=== PATIENT | female | born 1990 | race Two or more races ===

== ENCOUNTER → 2016-08-03 | Outpatient (CLI) | payer OTHER ==
[~2016-08-03] MED LIST: ABILIFY2 MG PO; ADVIL200 MG PO; DESYREL100 MG PO; EFFEXOR XR150 MG PO; EFFEXOR XR75 MG PO; LEVOTHROID (S200 MCG PO; ONDANSETRON ODT4 MG PO; THERAGRAN-M1 TAB PO; TOPIRAMATE100 MG PO; VENLAFAXINE H37.5 M1 PO; VISINE15 ML OPHTH; VISTARIL50 MG PO; WELLBUTRIN XL150 M1 PO
== END | disposition disaster alternative care site (69) ==
LOC: GCAR 08-02 10:00
DX: R55 Syncope and collapse (principal)

== ENCOUNTER 2016-10-02 20:54 | Emergency (ER) | payer OTHER ==
--- NOTE | ~2016-10-02 | ER ---
PATIENT'S NAME: RAYMOND [facility] AGE: 26 Y [address] ROOM: [place] [id number] LOCATION: [facility] ADMIT DATE: 10/02/2016 ER/Outpatient Report DISCHARGE DATE: 10/02/2016 FAMILY PHYSICIAN: Iris Zamudio MD ATTENDING PHYSICIAN: Maribel Thornton HISTORY OF PRESENT ILLNESS: This is a 26-year-old female, who is currently 25 weeks who presents today with shortness of breath. It is actually with deep inspiration. She denies chest pain. She also says that she feels faint and has passed out 4 to 5 times over the past 2 weeks, but this is an ongoing problem for her. Over the weekend, she had multiple episodes of nausea and vomiting, although she feels well now. She denies any nausea. She reports that about an hour ago, she got really anxious and hot and then developed this chest discomfort, generalized weakness and shortness of breath, but all of these symptoms had completely resolved by the time she got to the ER. She just reports feeling a mild chest discomfort, but says she does not really have any chest pain. She rates her pain as 0/10. When asked if she was anxious, she says yeah, but she does not take anything for it because she is now. PAST MEDICAL HISTORY: Includes migraines, anxiety, hypothyroidism. HISTORY: She is at 25 weeks. She is G2, P1-0-0-1. LMP was May 2016. Follows up with Dr. Berumen, who is her [employer]. SOCIAL HISTORY: She does not smoke, drink or use any drugs. MEDICATIONS: Please see med list. ALLERGIES: NONE. REVIEW OF SYSTEMS: Reviewed by me and negative with the exception of those discussed in HPI. PHYSICAL EXAMINATION: VITAL SIGNS: She is 5 feet 3 inches. She weighs 55.6 kilos. Blood pressure 108/63, heart rate 104, respiratory rate 16, temperature 97.3, and saturations are 98% on room air. GENERAL: The patient does not appear in any acute distress. She walked into the ER without any difficulty. She does not look pale or diaphoretic. She is PATIENT'S NAME: RAYMOND [facility]DENA [facility] AGE: 26 Y [address] ROOM: [place], [place] [address] LOCATION: [facility] ADMIT DATE: 10/02/2016 ER/Outpatient Report DISCHARGE DATE: 10/02/2016 FAMILY PHYSICIAN: Iris Zamudio MD ATTENDING PHYSICIAN: Maribel Thornton not actively vomiting or retching. HEART: Her heart rate is regular rate and rhythm at this time about 92 beats per minute. LUNGS: Her lungs sounds are clear. ABDOMEN: She has no abdominal tenderness on exam. GENITAL: She got uterus bedside ultrasound done. It showed a heart rate of 170. She has no vaginal bleeding or vaginal discharge. EXTREMITIES: She moves all extremities without any difficulty. EMERGENCY ROOM COURSE: CBC and CMS were done. CMS shows a sodium 139, potassium 3.7, chloride 109, CO2 21, anion gap 12.7, BUN is 7, and creatinine is 0.6. Alkaline phosphatase is 80. AST is 17, ALT is less than 10, GFR is greater than 90. CBC shows a white count of 7, H and H 10.0/29.7, and platelets are 288. No bandemia. This was discussed with the patient. She says she feels better just being here. They went over her lab work and she seems happy that everything is fine. We will give her prescription for some Zofran as she has been having nausea throughout her and asked her to follow up with her primary care doctor. IMPRESSION: Shortness of breath. MARIBEL THORNTON MD CAW/modl /[id number] d: 10/03/16 0434 t: 10/04/16 0607, OUTPATIENT REPORT
[2016-10-02 22:10] LABS: BASOPHIL % 0.3 %; HEMATOCRIT 29.7 % (33.0-46.0); IMMATURE GRANULOCYTE # 0.1 K/uL (0.0-0.3); IMMATURE GRANULOCYTE % 1.6 %; LYMPHOCYTE # 1.8 K/uL (0.8-4.0); LYMPHOCYTE % 25.3 %; MCH 29.4 pg (27.0-34.0); MCHC 33.7 gm/dL (32.0-36.5); MCV 87.4 fl (83.0-98.0); MONOCYTE # 0.5 K/uL (0.0-1.0); MONOCYTE % 7.4 %; MPV 9.6 fl (9.4-12.4); NEUTROPHIL # (ANC) 4.6 K/uL (1.8-7.8); NEUTROPHIL % 65.4 %; NRBC % 0 /100WBC (0-0.00); PLATELET COUNT 288 K/uL (150-450); RDW-CV 13.3 % (11.9-14.6)
[2016-10-02 22:26] LABS: ALBUMIN 2.5 gm/dL (3.5-5.0); ALK PHOS 80 IU/L (33-138); ANION GAP 12.7 (10.0-19.0); AST 17 IU/L (10-40); BLOOD UREA NITROGEN 7 mg/dL (6-24); CHLORIDE 109 mMol/L (96-110); CO2 21 mMol/L (22-32); CREATININE 0.6 mg/dL (0.5-1.1); POTASSIUM 3.7 mMol/L (3.7-5.1); SODIUM 139 mMol/L (135-145); TOTAL BILIRUBIN 0.3 mg/dL (0.0-1.5); TOTAL PROTEIN 6.4 g/dL (6.0-8.4)
[2016-10-02 22:27] LABS: ALT < 10 IU/L (12-78)
== END 2016-10-02 22:54 ==
LOC: GMED 20:54
PROVIDERS: Emergency Medicine
DX: O99.89 Other specified diseases and conditions complicating pregnancy, childbirth and the puerperium (principal); R06.02 Shortness of breath; O99.342 Other mental disorders complicating pregnancy, second trimester; F41.9 Anxiety disorder, unspecified; O99.282 Endocrine, nutritional and metabolic diseases complicating pregnancy, second trimester; E03.9 Hypothyroidism, unspecified; Z79.899 Other long term (current) drug therapy; Z3A.25 25 weeks gestation of pregnancy